=== PATIENT | female | born 1995 | race Caucasian/White ===

== ENCOUNTER 2022-04-06 18:12 | Emergency (ER) | payer MEDICAID, SELFPAY ==
[2022-04-06 18:13] VITALS: BP 122/59; PULSE 126; RESP 18; TEMP 37.9; O2SAT 99; BMI 22.1
[2022-04-06 20:04] VITALS: BP 101/43; PULSE 121; RESP 18; O2SAT 95
--- NOTE | 2022-04-06 20:10 | RAD_ITS ---
INDICATION: chest pain EXAMINATION/TECHNIQUE: X-RAY - portable upright AP chest x-ray COMPARISON: None. FINDINGS: LINES/DEVICES: None. LUNGS: Patchy airspace opacities left lower lung field partially silhouetting left heart border. MEDIASTINUM AND CARDIOVASCULAR STRUCTURES: Cardiac silhouette not enlarged. Central airways and mediastinal contour are unremarkable. BONES AND SOFT TISSUES: Unremarkable. RAD/Chest 1 View (Portable) IMPRESSION: Lingular infiltrate consistent with pneumonia. Electronically Signed: Anthony Lawrence MD at 21:06 EST ,
--- NOTE | 2022-04-06 20:12 | EKG12_ITS ---
Test Reason : CP Blood Pressure : / mmHG Vent. Rate : 119 BPM Atrial Rate : 119 BPM P-R Int : 126 ms QRS Dur : 074 ms QT Int : 316 ms P-R-T Axes : 017 083 013 degrees QTc Int : 444 ms Sinus tachycardia Nonspecific ST and T wave abnormality Abnormal ECG Confirmed by KENIA BRITO, ABHI ([id number]), video editor ADITI JAVIER ([id number]) on 04/10/2022 8:55:35 AM Referred By: Confirmed By:ABHI AQUINO MD
[2022-04-06 20:24] LABS: Absolute Lymphocyte Count 0.55 X10^3/uL (0.83-4.51); Basophil# 0.05 X10^3/uL; Basophil% 0.2 % (0-1); Hematocrit 33.6 % (37-47); Hemoglobin 11.4 g/dL (12.0-15.0); Lymphocyte # 0.55 X10^3/ul (0.83-4.51); Lymphocyte % 2.4 % (19-41); Mean Corp Hgb Conc 33.9 g/dL (32-36); Mean Corpuscular Hgb 28.9 pg (27.0-32.0); Mean Corpuscular Volume 85.1 fL (81-99); Mean Platelet Vol. 11.9 fl (6.2-12.0); Monocyte# 1.68 X10^3/uL; Monocyte% 7.5 % (0-10); NRBC Flagged by Analyzer 0 % (0-5); Neutrophil # 20.03 X10^3/uL (2.7-7.7); POSITIVE DIFFERENTIAL YES; Platelet Count 203 K/mm3 (150-450); RBC Distribution Width CV 12.9 % (11.6-14.6); Red Blood Count 3.95 M/mm3 (4.2-5.4); White Blood Count 22.5 K/mm3 (4.4-11.0)
[2022-04-06 20:30] LABS: Differential Indicated SCAN CRITERIA MET
[2022-04-06] MEDS: Acetaminophen 500 MG Tablet 1000 MG PO (20:42)
[2022-04-06] MEDS: Aspirin 81 MG TAB.CHEW 324 MG PO (20:42)
[2022-04-06 20:43] LABS: Anion Gap 10 (5-15); BUN 9 mg/dL (7-18); BUN/Creat Ratio 9.8 RATIO (10-20); Calcium,Total 8.9 mg/dL (8.5-10.1); Chloride 107 mmol/L (98-107); Creatinine, Serum 0.92 mg/dL (0.55-1.02); EST Glomerular Filtration Rate 78 mL/min (>60); Est Glom Filt Rate - Afr Amer 95 mL/min (>60); Estimated Creatinine Clearance 85.99 ml/min; Glucose 98 mg/dL (74-106); Potassium 3.5 mmol/L (3.5-5.1); Sodium Level 138 mmol/L (136-145); Troponin-I HS 6 pg/mL (3.0-54.0)
[2022-04-06] MEDS: 0.9% Normal Saline 1,000 ML 1000 ML IV (20:43)
--- NOTE | 2022-04-06 21:15 | EDS_ITS ---
HPI History of Present Illness Chief Complaint: Chest Pain Informant: patient Onset/Context/Timing Onset: Today and Hours (8) Activity at onset: gradual Timing: Continuous Quality: Positive for Sharp Location: Substernal Worsened By: Nothing Relieved By: - (Inhaler) Associated Symptoms: Positive for Dyspnea, Cough and Palpitations; Negative for Nausea, Vomiting, Diaphoresis, Fever, Lightheadedness or Acid Reflux Narrative Narrative: Presents with chest pain that began approximately 8 hours prior to arrival. Patient states it is constant. Patient states it is sharp. Patient states it is over the substernal area. Patient states it was better after using her inhaler. Patient states nothing makes it worse. Patient admits to some shortness of breath and cough with it. Patient also admits to some palpitations. Patient states her pain radiates into her back and into the base of her neck. Patient denies any nausea, vomiting, or diaphoresis. Patient denies any lightheadedness or acid reflux symptoms. CVD Risk Factors: Positive for Family History 1' </=55 and Smoking; Negative for Hypertension, Diabetes or Hypercholesterolemia PE Risk Factors: Negative for Recent Travel/Surgery, Recent Immobilization, Prior DVT or PE, Cancer or OCP + Smoking + >/=35 PFSH PFSH Medical History no medical history no medical history Home Medications azithromycin 250 mg tablet 250 mg PO DAILY #4 TABLETS 04/06/22 [Rx Last Taken Unknown] Allergy/AdvReac Type Severity Reaction Status Date / Time No Known Allergies Allergy Verified 04/06/22 18:15 Surgical History (Updated 04/06/22 @ 21:[address] Francis Damon, DO) Status post ORIF of fracture of ankle Social History Smoking Status: Current every day smoker tobacco type: e-cigarettes ROS ROS ED Constitutional Constitutional ED: Denies chills or fever(s) Eyes Eyes: Denies blurry vision or change in vision ENT ENT ED: Denies rhinorrhea or sore throat Cardiovascular Cardiovascular: Reports chest pain and palpitations Respiratory/Chest Respiratory/Chest: Reports cough and dyspnea Gastrointestinal Gastrointestinal: Denies abdominal pain, nausea or vomiting Genitourinary Genitourinary ED: Denies dysuria or hematuria Musculoskeletal Musculoskeletal: Reports back pain and neck pain Integumentary Denies abscess or rash Neurologic Neurologic: Denies headache(s) or weakness Allergic/Immunologic Allergic/Immunologic ED: Denies mouth swelling or urticaria EXAM Physical Exam Const Vital Signs: 04/06/22 18:13 04/06/22 20:04 04/06/22 20:12 Temperature 100.3 F H Temperature Source Temporal Pulse Rate 126 H 121 H Respiratory Rate 18 18 Blood Pressure 122/59 H 101/43 L Blood Pressure Mean 80 62 Pulse Ox 99 95 Oxygen Delivery Method Room Air Room Air Room Air Positive well nourished, well developed and unkempt General Appearance ED: unkempt, well developed and NAD HEENT normocephalic and atraumatic Eyes PERRL and EOMs intact bilaterally Neck supple and no JVD Chest Wall palpation of chest normal Resp normal respiratory effort and clear to auscultation bilaterally Effort and Inspection: Negative for respiratory distress Cardio regular rate, regular rhythm and no murmurs GI normal to inspection, nondistended, normoactive bowel sounds, soft to palpation, non-tender and non-distended Extremity normal to inspection General Extremety ED: Negative for edema or tenderness General Extremity: Negative for edema Neuro oriented x3, CN's II-XII intact bilaterally and no sensory deficits noted Sensorium / Orientation: awake and alert Motor Exam: strength 5/5 throughout Psych mental status grossly normal Appearance: unkempt Heart Score History: Slightly/Non-Suspicious ECG: Nonspecific Repolarization Age: </= 45 years Risk Factors: 1 or 2 Risk Factors Troponin: </= Normal Limit Score: 2 MDM MDM MDM Narrative Medical decision making narrative: Differential diagnosis includes cardiac ischemia, cardiac dysrhythmia, pneumonia, pneumothorax, and electrolyte abnormality. CBC will be obtained to assess for leukocytosis and anemia. Basic metabolic profile will be obtained to assess for electrolyte abnormality and renal function. High-sensitivity troponin will be obtained to assess for cardiac ischemia. EKG will be obtained to assess for cardiac dysrhythmia and cardiac ischemia. Chest x-ray will be obtained to assess for pneumonia and pneumothorax. Lab Data Attestation: I reviewed the patient's lab results. Lab results narrative: CBC was reviewed. There is a leukocytosis of 22.5. Hemoglobin was stable at 11.4 hematocrit is 33.6. Basic metabolic profile was reviewed and was within normal limits. High-sensitivity troponin was reviewed and was normal. Labs: Laboratory Results - last 24 hr 04/06/22 04/06/22 20:10 20:10 WBC 22.5 H RBC 3.95 L Hgb 11.4 L Hct 33.6 L MCV 85.1 MCH 28.9 MCHC 33.9 RDW Std Deviation 40.0 RDW Coeff of Damaris 12.9 Plt Count 203 MPV 11.9 Immature Gran % (Auto) 0.900 Neut % (Auto) 89.0 H Lymph % (Auto) 2.4 L Bollinger % (Auto) 7.5 Eos % (Auto) 0.0 Baso % (Auto) 0.2 Absolute Neuts (auto) 20.0 H Absolute Lymphs (auto) 0.55 L Nucleated RBC % 0 Differential Comment SCANNED Sodium 138 Potassium 3.5 Chloride 107 Carbon Dioxide 21.0 Anion Gap 10 BUN 9 Creatinine 0.92 Estim Creat Clear Calc 85.99 Est GFR (MDRD) Af Amer 95 Est GFR (MDRD) Non-Af 78 BUN/Creatinine Ratio 9.8 L Glucose 98 Calcium 8.9 Troponin I High Sens 6 Radiography Chest X-Ray - ED: 1 View, Read by ED Physician, Read by Radiologist and Left Infiltrate Diagnostic Testing: Clinical Impression(s) from Imaging Studies Chest X-Ray 04/06/22 20:10 IMPRESSION: Lingular infiltrate consistent with pneumonia. Electronically Signed: Anthony Lawrence MD at 21:06 EST Reading Location ID and State: [facility] / [place] Tel , Service support , Portable 1 view chest x-ray was obtained. On my independent interpretation, lung leos show an infiltrate in the lingula of the left upper lobe. There is normal cardiac silhouette. Bony thorax is normal. Radiologist also interpreted the x-ray and agrees. Treatment and Re-Evaluation Narrative: Patient was given IV fluids, aspirin, and Tylenol here. Patient is feeling better on reevaluation. Patient was advised of her findings. Patient was given a dose of Zithromax here. Patient was given a prescription for Zithromax. Patient was given a note for work. Patient was instructed to drink plenty of fluids. Patient was instructed to continue Tylenol or ibuprofen as needed for any fevers. Patient was instructed to follow-up with her primary care physician in 5 to 7 days. Patient understood and was agreeable with the plan. All questions were answered. Discharge Plan Triage Chief Complaint: Chest Pain Other Complaint: Dizziness Shortness of Breath ED Provider: Francis Damon Dx/Rx/DC Orders Clinical Impression: Pneumonia, Leukocytosis Instructions: ED Pneumonia (Adult) Prescriptions: New azithromycin [azithromycin] 250 mg tablet 250 mg PO DAILY Qty: 4 0RF Stand Alone Forms: ED Work / School Excuse Primary Care Provider: Julianne Cavanaugh NP Referrals: Julianne Cavanaugh NP, [employer]AFFING [employer] MANAGER-[employer] [Primary Care Provider] - 5-7 Days Disposition Disposition: Home, Self Care
[2022-04-06 21:43] LABS: Differential Comment SCANNED
[2022-04-06] MEDS: Azithromycin 250 MG Tablet 500 MG PO (22:01)
[2022-04-06 22:04] VITALS: BP 124/69; PULSE 72; RESP 15; O2SAT 98
[2022-04-09 14:07] LABS: Pathologist Review Reviewed
== END 2022-04-06 22:05 | disposition home or self-care (01) ==
PROVIDERS: Emergency Provider Emergency Medicine; PCP Nurse Practitioner Family; Visit Provider Emergency Medicine
DX: J18.9 Pneumonia, unspecified organism (principal); D72.829 Elevated white blood cell count, unspecified; F17.290 Nicotine dependence, other tobacco product, uncomplicated; R00.2 Palpitations; R42 Dizziness and giddiness
CPT/HCPCS: 71045; 80048; 84484; 85025; 93005; 96360; 99283; J7030; A4216

== ENCOUNTER 2023-01-09 10:51 | Emergency (ER) | payer MEDICAID, SELFPAY ==
[2023-01-09 10:52] VITALS: BP 123/63; PULSE 80; RESP 16; TEMP 36.6; O2SAT 97; BMI 19.8
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
== END 2023-01-09 12:25 | disposition home or self-care (01) ==
PROVIDERS: Emergency Provider Emergency Medicine; PCP Nurse Practitioner Family; Visit Provider Emergency Medicine
DX: S20.212A Contusion of left front wall of thorax, initial encounter (principal); Y04.8XXA Assault by other bodily force, initial encounter; F17.290 Nicotine dependence, other tobacco product, uncomplicated
CPT/HCPCS: 71101; 99282